=== PATIENT | female | born 1965 | race Caucasian/White ===

== ENCOUNTER 2017-04-21 05:18 | Day surgery (SDC) | payer BC ==
[2017-04-23] MEDS ORDERED: PERCOCET 5-3251 EACH PO (02:39)
[2017-04-23] MEDS ORDERED: IBUPROFEN800 M1 PO (12:41)
== END 2017-04-23 13:15 ==
LOC: SHSC 05:18 → ORW 07:14 → PACU 09:31 → OBGF 11:30
PROC: 0UT90ZZ Resection of Uterus, Open Approach (ICD-10-PCS; principal; 2017-04-21)
PROC: 0UT20ZZ Resection of Bilateral Ovaries, Open Approach (ICD-10-PCS; 2017-04-21)
PROC: 0UT70ZZ Resection of Bilateral Fallopian Tubes, Open Approach (ICD-10-PCS; 2017-04-21)
PROC: 0UNF0ZZ Release Cul-de-sac, Open Approach (ICD-10-PCS; 2017-04-21)
DX: N80.0 Endometriosis of uterus (principal); D25.9 Leiomyoma of uterus, unspecified; N70.91 Salpingitis, unspecified; N73.6 Female pelvic peritoneal adhesions (postinfective); Z53.31 Laparoscopic surgical procedure converted to open procedure; E66.9 Obesity, unspecified; Z68.32 Body mass index [BMI] 32.0-32.9, adult; Z88.2 Allergy status to sulfonamides
CPT/HCPCS: J0690; J1170; J2270; J3010; J7030; J7121